=== PATIENT | female | born 1950 | race Caucasian/White ===

== ENCOUNTER → 2020-10-02 | Outpatient (CLI) | payer OTHER, MEDICARE ==
[~2020-10-02] MED LIST: CLONAZEPAM 1 MG1 M1; KEFLEX250 M1; METFORMIN HCL500 MG; NORCO 5-325 TA1 EACH PO; OXYBUTYNIN 5 MG5 M2; REQUIP1 MG; ZOCOR 10 MG TAB10 MG
== END ==
LOC: SJCVC 10:38
PROVIDERS: ATTEND Internal Medicine
DX: R94.31 Abnormal electrocardiogram [ECG] [EKG] (principal); I25.118 Atherosclerotic heart disease of native coronary artery with other forms of angina pectoris; R06.00 Dyspnea, unspecified; E78.5 Hyperlipidemia, unspecified; E11.9 Type 2 diabetes mellitus without complications; G47.33 Obstructive sleep apnea (adult) (pediatric); F32.9 Major depressive disorder, single episode, unspecified; Z86.79 Personal history of other diseases of the circulatory system; Z79.899 Other long term (current) drug therapy; Z79.84 Long term (current) use of oral hypoglycemic drugs; Z79.82 Long term (current) use of aspirin; Z88.2 Allergy status to sulfonamides; Z88.8 Allergy status to other drugs, medicaments and biological substances

== ENCOUNTER → 2020-10-05 | Outpatient (CLI) | payer OTHER, MEDICARE | LOC: SJCVCIMAG 08:52 | PROVIDERS: ATTEND Internal Medicine | DX: I08.3 Combined rheumatic disorders of mitral, aortic and tricuspid valves (principal); I77.89 Other specified disorders of arteries and arterioles; Z79.82 Long term (current) use of aspirin; Z79.899 Other long term (current) drug therapy ==

== ENCOUNTER → 2020-10-06 | Outpatient (CLI) | payer OTHER, MEDICARE | LOC: LAB 10:22 | PROVIDERS: ATTEND Internal Medicine | DX: Z01.812 Encounter for preprocedural laboratory examination (principal); Z20.822 Contact with and (suspected) exposure to COVID-19 ==

== ENCOUNTER → 2020-10-09 | Outpatient (CLI) | payer OTHER, MEDICARE ==
[~2020-10-09] VITALS: Ht 172.7 cm; Wt 109.8 kg
[~2020-10-09] MED LIST changes: +AMARYL2 MG PO; +ASA81BEC PO; +B-12500 MCG PO; +CITALOPRAM HBR40 MG PO; +COZAAR 50 MG TA50 MG PO; +CRESTOR20 MG PO; +DITROPAN XL10 M1 PO; +FERRETTS325 MG PO; +GABAPENTIN100 MG PO; +MELATONIN3 M1 PO; +METFORMIN HCL1000 M1 PO; +REQUIP XL2 MG PO; +SONATA5 M1 PO
[2020-10-09 07:13] VITALS: BP 150/83
--- NOTE | 2020-10-09 09:27 | CATHLAB ---
[facility] [place] [address] INVASIVE PROCEDURE REPORT Name: JANETTE MILTON Room #: REG SANTOS García.#: [id number] Admission: 10/09/20 Attend Phys: Lamin Boggs MD, Discharge: Date of : 54 Report #: [id number] THIS REPORT FOR: cc: JUAN GREENE MD, OSSAMA MD Lundgren,Lamin Harkins MD [facility] ~ APPROVED REPORT Study performed: 10/09/2020 07:32:09 Patient Details Patient Status: Out-Patient Room #: The patient is a 70 year-old female Event Personnel Lamin Boggs Hospice Aide, Tracey Priest RN RN, Nafisa De Guzman RTR Monitor, Alissa Tapia RTR Injection Molding Operator, Keila Castillo RT(R)() Scrub Procedures Performed Art Access - R femoral artery* Left Heart Cath w/or w/o Coronaries [id number] [facility] [address] Initial Mod Sed Same Phys/QHP [facility] [id number] Mod Sed Same Phys/QHP Ea [id number] Hemostasis w/ Mynx Indication Chest pain Risk Factors Arterial Hypertension, Diabetes Procedure Narrative The patient was brought electively to the Cardiac Catheterization Laboratory and was prepped and draped in a sterile manner. The Right Groin^ was infiltrated with 1% Lidocaine subcutaneous anesthesia. A PINNACLE 6FR Sheath #[id number] sheath was inserted into the RFA^. Coronary angiography was performed using coronary diagnostic catheters. The right coronary system was accessed and visualized with a AR MOD catheter. The left coronary system was accessed and visualized with a AL II catheter. The left ventricle was accessed and visualized with a PIGTAIL catheter. Left ventriculogram was performed in 30 degree projection. Closure device was deployed with a Fr MYNXGRIP 6/7F #[id number]. The patient tolerated the procedure well and there were no complications associated with the procedure. There was no hematoma. [facility] [address] [place] [address] INVASIVE PROCEDURE REPORT Name: JANETTE MILTON Room #: [facility] [id number] Admission: 10/09/20 Attend Phys: Lamin Boggs, Discharge: Date of : 54 Report #: [id number] Intraoperative Conscious Sedation Sedation start time: 7:59 Case end Time: 8:46 Fentanyl 100 mcg Versed 1 mg Fluoro Time: 10.49 minutes Dose: DAP 7741.40 cGycm2 1027 mGy Contrast Type and Amount: Omnipaque 160 ml Coronary Angiography The patient's coronary anatomy is right dominant. Diagnostic Cath Left Main Short, normal left main LAD Large, normal left anterior descending extending to the inferior apex Diagonal 1 Large, single diagonal branch, angiographically normal Circumflex Large nondominant circumflex comprised of 2 marginal branches OM1 Large first marginal branch, angiographically normal OM2 Large distally arising second marginal branch, angiographically normal Right Coronary Normal, dominant right coronary. R PDA Normal posterior descending Left Ventriculography The left ventricle is normal in size with normal contractility. The left ventricular ejection fraction is estimated to be 60-65%. Left ventricular wall motion abnormalities are not present. There is no mitral insufficiency. Dilated ascending aorta Hemodynamics The aortic pressure is 134/69 mmHg with a mean of 97 mmHg. The left ventricular pressure is 156/1 mmHg with a mean of mmHg. The left ventricular end diastolic pressure is 24 mmHg. Pullback from the left ventricle to the aorta revealed no gradient across the aortic valve. Conclusion 1. Normal global and regional left ventricular systolic function. EF 65%. Dilated ascending aorta 2. Normal left main [facility] [address] [address] INVASIVE PROCEDURE REPORT Name: JANETTE MILTON Room #: REG [facility]#: [id number] Admission: 10/09/20 Attend Phys: Lamin Boggs, Discharge: Date of : 54 Report #: [id number] 3. Normal coronary vasculature. Right coronary dominant circulation. <ELECTRONICALLY SIGNED> By: Lamin Boggs MD, [facility] 10/09/2027 0927 Lamin Boggs MD, FACC /INF
== END | disposition home or self-care (01) ==
LOC: CATH 06:23
PROVIDERS: ATTEND Internal Medicine
DX: R07.9 Chest pain, unspecified (principal); I77.819 Aortic ectasia, unspecified site; I10 Essential (primary) hypertension; E11.9 Type 2 diabetes mellitus without complications; E78.5 Hyperlipidemia, unspecified; F32.9 Major depressive disorder, single episode, unspecified; Z82.49 Family history of ischemic heart disease and other diseases of the circulatory system; Z98.890 Other specified postprocedural states; Z79.899 Other long term (current) drug therapy; Z91.041 Radiographic dye allergy status; Z88.8 Allergy status to other drugs, medicaments and biological substances

== ENCOUNTER → 2021-04-05 | Outpatient (CLI) | payer OTHER, MEDICARE | LOC: SJCVCIMAG 09:18 | PROVIDERS: ATTEND Internal Medicine | DX: I08.3 Combined rheumatic disorders of mitral, aortic and tricuspid valves (principal); I25.119 Atherosclerotic heart disease of native coronary artery with unspecified angina pectoris; R06.00 Dyspnea, unspecified; I10 Essential (primary) hypertension; E78.5 Hyperlipidemia, unspecified; E11.9 Type 2 diabetes mellitus without complications; G47.33 Obstructive sleep apnea (adult) (pediatric); I87.2 Venous insufficiency (chronic) (peripheral); F32.9 Major depressive disorder, single episode, unspecified; Z79.82 Long term (current) use of aspirin; Z79.84 Long term (current) use of oral hypoglycemic drugs; Z79.899 Other long term (current) drug therapy; Z88.1 Allergy status to other antibiotic agents; Z88.8 Allergy status to other drugs, medicaments and biological substances ==

== ENCOUNTER → 2021-07-09 | Outpatient (CLI) | payer OTHER, MEDICARE | LOC: SJCVCIMAG 09:47 | PROVIDERS: ATTEND Internal Medicine | DX: I87.2 Venous insufficiency (chronic) (peripheral) (principal); I10 Essential (primary) hypertension; E78.5 Hyperlipidemia, unspecified; E11.9 Type 2 diabetes mellitus without complications; G47.33 Obstructive sleep apnea (adult) (pediatric); F32.9 Major depressive disorder, single episode, unspecified; Z86.79 Personal history of other diseases of the circulatory system; Z79.82 Long term (current) use of aspirin; Z79.84 Long term (current) use of oral hypoglycemic drugs; Z79.899 Other long term (current) drug therapy; Z88.1 Allergy status to other antibiotic agents; Z88.8 Allergy status to other drugs, medicaments and biological substances ==

== ENCOUNTER → 2021-08-04 | Outpatient (CLI) | payer OTHER, MEDICARE | LOC: SJCVC 09:24 | PROVIDERS: ATTEND Nuclear Medicine Nuclear Cardiology | DX: I87.303 Chronic venous hypertension (idiopathic) without complications of bilateral lower extremity (principal); I87.2 Venous insufficiency (chronic) (peripheral); M79.89 Other specified soft tissue disorders; I25.119 Atherosclerotic heart disease of native coronary artery with unspecified angina pectoris; I10 Essential (primary) hypertension; E11.9 Type 2 diabetes mellitus without complications; E78.00 Pure hypercholesterolemia, unspecified; E78.5 Hyperlipidemia, unspecified; F32.9 Major depressive disorder, single episode, unspecified; G47.33 Obstructive sleep apnea (adult) (pediatric); Z86.79 Personal history of other diseases of the circulatory system; Z88.8 Allergy status to other drugs, medicaments and biological substances; Z79.82 Long term (current) use of aspirin; Z79.84 Long term (current) use of oral hypoglycemic drugs; Z79.899 Other long term (current) drug therapy; Z82.49 Family history of ischemic heart disease and other diseases of the circulatory system ==

== ENCOUNTER → 2021-08-05 | Outpatient (CLI) | payer OTHER, MEDICARE ==
[~2021-08-05] VITALS: Ht 172.7 cm; Wt 104.3 kg
[2021-08-05 12:38] VITALS: BP 147/77
[2021-08-05 12:42] LABS: HEMATOCRIT 38.6 % (37.0-47.0); HEMOGLOBIN 12.6 gm/dL (12.0-15.0); MCHC 32.7 g/dL (28.0-37.0); MCV 82.6 fL (80.0-100.0); RBC 4.68 mil/uL (4.20-5.00); RDW 15.5 % (10.5-14.5); WBC 13.3 thou/uL (4.0-11.0)
[2021-08-05 12:58] LABS: CALCIUM 9.4 mg/dL (8.5-10.1); CREATININE 0.8 mg/dL (0.6-1.0); POTASSIUM 4.3 mmol/L (3.5-5.1)
== END | disposition home or self-care (01) ==
LOC: CATH 11:57
PROVIDERS: ATTEND Nuclear Medicine Nuclear Cardiology
DX: I87.1 Compression of vein (principal); I87.323 Chronic venous hypertension (idiopathic) with inflammation of bilateral lower extremity; R22.43 Localized swelling, mass and lump, lower limb, bilateral; M79.604 Pain in right leg; M79.605 Pain in left leg; I10 Essential (primary) hypertension; E78.00 Pure hypercholesterolemia, unspecified; E11.9 Type 2 diabetes mellitus without complications; F32.9 Major depressive disorder, single episode, unspecified; Z98.890 Other specified postprocedural states; Z79.899 Other long term (current) drug therapy; Z91.041 Radiographic dye allergy status; Z88.8 Allergy status to other drugs, medicaments and biological substances